=== PATIENT | male | born 1945 | race Caucasian/White ===

== ENCOUNTER 2017-09-23 10:40 | Emergency (ER) | payer OTHER, BC ==
[2017-09-23 10:48] VITALS: BP 127/84; PULSE 110; TEMP 100.3; BMI 30.4
--- NOTE | 2017-09-23 11:37 | PDOC ---
History of Present Illness - General Chief Complaint: Cold Symptoms Stated Complaint: COLD SYMPTOMS Time Seen by Provider: 09/23/17 11:18 History Source: Patient Exam Limitations: No Limitations - History of Present Illness Initial Comments: 09/23/17 11:35 Patient is a 71-year-old male denies any significant medical history did have a history of hypertension and currently off medications because his blood pressure has been under control. Patient presents with fever onset last evening chills generalized aches and pains and cough. Eyes are watery. Works at [employer] exposed to influenza. Did have influenza vaccine. Past Medical History: [Denies]. Allergies: No known allergies Medications: [None] Family History: Non-contributory Social History: Denies smoking, alcohol use, or IVDU Vital signs on arrival are [notable for pulse of 96.] Review of Systems GENERAL/CONSTITUTIONAL: [Fever, chills, generalized aches and pain No weakness. No weight change.] HEAD, EYES, EARS, NOSE AND THROAT: [No change in vision. No ear pain or discharge. No sore throat. ] CARDIOVASCULAR: [No chest pain or shortness of breath.] RESPIRATORY: [Nonproductive cough, wheezing, or hemoptysis.] GASTROINTESTINAL: [No nausea, vomiting, diarrhea or constipation. No rectal bleeding.] GENITOURINARY: [No dysuria, frequency, or change in urination.] MUSCULOSKELETAL: [No joint or muscle swelling or pain. No neck or back pain.] SKIN AND BREASTS: [No rash or easy bruising.] NEUROLOGIC: [No headache, vertigo, loss of consciousness, or loss of sensation.] PSYCHIATRIC: [No depression or anxiety.] ENDOCRINE: [No increased thirst. No abnormal weight change.] HEMATOLOGIC/LYMPHATIC: [No anemia, easy bleeding, or history of blood clots.] ALLERGIC/IMMUNOLOGIC: [No hives or skin allergy. No latex allergy.] Physical Exam: GENERAL: [The patient is awake, alert, and fully oriented, in no acute distress. ] HEAD: [Normal with no signs of trauma.] EYES: [Pupils equal, round and reactive to light, extraocular movements intact, sclera anicteric, conjunctiva clear.] ENT: [Ears normal, nares patent, oropharynx clear without exudates. Moist mucous membranes. No uvula deviation] NECK: [Normal range of motion, supple without lymphadenopathy, JVD, or masses.] LUNGS: [Breath sounds equal, clear to auscultation bilaterally. No wheezes, and no crackles.] HEART: [Regular rate and rhythm, normal S1 and S2 without murmur, rub or gallop. ] ABDOMEN: [Soft, nontender, normoactive bowel sounds. No guarding, no rebound. No masses. No bruising or abrasions] MUSCULOSKELETAL: [Normal range of motion, no edema. No clubbing or cyanosis. No cords, erythema, or tenderness. No CVA Tenderness with fist.] NEUROLOGICAL: [Cranial nerves II through XII grossly intact. Normal speech, normal gait.] SKIN: [Warm, Dry, normal turgor, no rashes or lesions noted.] Past History - Past Medical History Allergies/Adverse Reactions: Allergies Allergy/AdvReac Type Severity Reaction Status Date / Time shrimp Allergy Swelling Verified 09/23/17 10:49 Home Medications: Ambulatory Orders Oseltamivir Phosphate [Tamiflu -] 75 mg PO BID #10 capsule 09/23/17 COPD: No Other medical history: ENLARGED PROSTATE - Suicide/Smoking/Psychosocial Hx Smoking History: Never smoked Hx Alcohol Use: Yes (SOCIAL) Drug/Substance Use Hx: No Substance Use Type: None *Physical Exam - Vital Signs Last Vital Signs Temp Pulse Resp BP Pulse Ox 100.3 F H 110 H 20 127/84 96 09/23/17 10:45 09/23/17 10:45 09/23/17 10:45 09/23/17 10:45 09/23/17 10:45 Medical Decision Making - Medical Decision Making 09/23/17 11:37 A/P: Patient here for influenza-type illness, fever general malaise. Rapid influenza sent 09/23/17 12:10 Patient is influenza A positive will discharge patient in tamiflu. Follow-up with occupational medicine to be released to return to work. *DC/Admit/Observation/Transfer Diagnosis at time of Disposition: Influenza A - Discharge Dispostion Disposition: HOME Condition at time of disposition: Good Admit: No - Prescriptions Prescriptions: Oseltamivir Phosphate [Tamiflu -] 75 mg PO BID #10 capsule - Referrals Referrals: Jack Sánchez MD [Primary Care Provider] - - Patient Instructions Printed Discharge Instructions: Influenza, Influenza (Alternative Therapy) Additional Instructions: Increase fluids to prevent dehydration Tylenol for headache Motrin for fever greater than 101.0 Please followup with primary care DrSylvia in 3 days if symptoms persist Return to emergency department any increased cough, fever, inability to drink or other concerns Tamiflu as prescribed must be cleared by occupational medicine to return to work. Approximately one week. - Post Discharge Activity
== END 2017-09-23 12:21 | disposition home or self-care (01) ==
LOC: JERFT 10:40 → JER 10:40 → JERFT 12:21
DX: J09.X2 Influenza due to identified novel influenza A virus with other respiratory manifestations (principal); I10 Essential (primary) hypertension
CPT/HCPCS: 87804; 99281-25

== ENCOUNTER 2020-03-07 19:06 | Observation (INO) | payer OTHER, BC, MEDICARE ==
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
[2020-03-07 19:16] VITALS: BMI 31.2
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
[2020-03-07 20:09] LABS: BASO % 0.6 % (0-2.0); EOS % 0.7 % (0-4.5); HEMATOCRIT 45.1 % (35.4-49); LYMPH % 15.3 % (8-40); MCH 29.7 pg (25.7-33.7); MCHC 33.2 g/dl (32.0-35.9); MEAN CELL VOLUME 89.5 fl (80-96); MEAN PLT VOLUME 8.6 fl (7.5-11.1); MONO % 5.7 % (3.8-10.2); NEUT % 77.7 % (42.8-82.8); PLATELET COUNT 185 K/MM3 (134-434); RBC 5.04 M/mm3 (4.00-5.60); RDW 14.4 % (11.9-15.9); WHITE BLOOD COUNT 6.5 K/mm3 (4.0-10.0)
[2020-03-07 20:16] LABS: INR 1.07 (0.83-1.09); PROTHROMBIN TIME (PATIENT) 12.6 SEC (9.7-13.0)
--- NOTE | 2020-03-07 20:17 | PDOC ---
Documentation entered by Myrna Tinajero SCRIBE, acting as scribe for Wisam Gomez MD. Wisam Gomez MD: This documentation has been prepared by the michelaibe, Myrna Tinajero SCRIBE, under my direction and personally reviewed by me in its entirety. I confirm that the documentation accurately reflects all work, treatment, procedures, and medical decision making performed by me. Attending Attestation - Resident Resident Name: RojeliojabariItalia - ED Attending Attestation I have performed the following: I have examined & evaluated the patient, The case was reviewed & discussed with the resident, I agree w/resident's findings & plan, Exceptions are as noted - HPI HPI: 03/07/20 20:00 The patient is a 74-year-old male with a past medical history significant for HTN, Alzheimers, gout, and daily baby ASA use who presents to the emergency department s/p a witnessed fall today. The fall was witnessed by his , who reports the patient was drinking heavily today, and the patient tripped and fell forwards, hitting his head on the AC unit then fell backward, hitting the back of his head. The states the patient was unconscious for about 10 minutes. No seizure activity noted. Currently, at the ED, the patient denies a headache. Denies CP/SOB/palpitations/lightheadedness. Allergies: shrimp Social history: No reported use of tobacco, alcohol or recreational drugs. - Physicial Exam PE: 03/07/20 20:04 See resident exam - Medical Decision Making 03/07/20 20:18 74 M with fall, ?syncope. - CT head/cspine - Labs - EKG Discharge - Discharge Information Problems reviewed: Yes Clinical Impression/Diagnosis: Syncope and collapse Fall Qualifiers: Encounter type: initial encounter Qualified Code(s): W19.XXXA - Unspecified fall, initial encounter Head injury Qualifiers: Encounter type: initial encounter Qualified Code(s): S09.90XA - Unspecified injury of head, initial encounter Condition: Stable Disposition: HOME - Follow up/Referral - Patient Discharge Instructions - Post Discharge Activity
[2020-03-07] MEDS ORDERED: SODIUM CHLORIDE 0.9% 500 ML INFUS.BAG IV ONE (20:21)
[2020-03-07 20:36] LABS: MAGNESIUM 2.5 mg/dL (1.8-2.4)
[2020-03-07 20:42] LABS: BILIRUBIN,TOTAL 0.4 mg/dL (0.2-1); BLOOD UREA NITROGEN 20.2 mg/dL (7-18); CALCIUM 8.7 mg/dL (8.5-10.1); POTASSIUM 4.2 mmol/L (3.5-5.1); TOT PROT 7.4 g/dl (6.4-8.2)
[2020-03-07] MEDS ORDERED: PIPERACILLIN/TAZOB 3.375 GM 3.375 GM in DEXTROSE 5%-WATER - 50 ML IVPB ONE (22:46)
[2020-03-07] MEDS ORDERED: TAMSULOSIN HCL 0.4 MG CAP PO ONE (22:48)
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
[2020-03-07 23:36] LABS: URINE APPEARANCE Clear; URINE BILIRUBIN Negative (NEGATIVE); URINE COLOR Yellow; URINE GLUCOSE (UA) Negative (NEGATIVE); URINE KETONE Negative (NEGATIVE); URINE LEUK ESTERASE Negative (NEGATIVE); URINE NITRITE Negative (NEGATIVE); URINE PROTEIN Negative (NEGATIVE); URINE UROBILINOGEN 0.2 mg/dL (0.2-1.0)
[2020-03-08] MEDS ORDERED: TAMSULOSIN HCL 0.4 MG CAP ONE (00:02)
[2020-03-08] MEDS ORDERED: PIPERACILLIN/TAZOB 3.375 GM 3.375 GM/50 ML BAG IVPB ONE (00:08)
[2020-03-08 05:59] LABS: COCAINE, UR NEGATIVE ng/ml (CUTOFF=300); METHADONE, UR NEGATIVE ng/ml (CUTOFF=300); OPIATES, URI NEGATIVE ng/ml (CUTOFF=300); PHENCYCLIDINE,URINE NEGATIVE ng/ml (CUTOFF=25); URINE AMPHETAMINES NEGATIVE ng/ml (CUTOFF=500); URINE BARBITURATES NEGATIVE ng/ml (CUTOFF=200); URINE BENZODIAZEPINES NEGATIVE ng/ml (CUTOFF=200)
[2020-03-08 06:30] LABS: BASO % 0.7 % (0-2.0); EOS % 2.5 % (0-4.5); HEMATOCRIT 42.7 % (35.4-49); HEMOGLOBIN 14.2 GM/dL (11.7-16.9); LYMPH % 26.4 % (8-40); MCHC 33.3 g/dl (32.0-35.9); MEAN PLT VOLUME 8.9 fl (7.5-11.1); MONO % 9.9 % (3.8-10.2); NEUT % 60.5 % (42.8-82.8); PLATELET COUNT 170 K/MM3 (134-434); RBC 4.75 M/mm3 (4.00-5.60); RDW 14.3 % (11.9-15.9); WHITE BLOOD COUNT 5.4 K/mm3 (4.0-10.0)
[2020-03-08 06:56] LABS: ALBUMIN 3.6 g/dl (3.4-5.0); BILIRUBIN,TOTAL 0.5 mg/dL (0.2-1); BLOOD UREA NITROGEN 14.4 mg/dL (7-18); CALCIUM 8.8 mg/dL (8.5-10.1); CREATININE 0.8 mg/dL (0.55-1.3); POTASSIUM 3.9 mmol/L (3.5-5.1); TOT PROT 6.8 g/dl (6.4-8.2)
--- NOTE | 2020-03-08 09:17 | EKG ---
Test Reason : Blood Pressure : / mmHG Vent. Rate : 070 BPM Atrial Rate : 070 BPM P-R Int : 200 ms QRS Dur : 110 ms QT Int : 408 ms P-R-T Axes : 028 -52 034 degrees QTc Int : 440 ms NORMAL SINUS RHYTHM WITH SINUS ARRHYTHMIA LEFT ANTERIOR FASCICULAR BLOCK MODERATE VOLTAGE CRITERIA FOR LVH, MAY BE NORMAL VARIANT ABNORMAL ECG WHEN COMPARED WITH ECG OF 25-JUN-2000 10:52, LEFT ANTERIOR FASCICULAR BLOCK IS NOW PRESENT QT HAS LENGTHENED Confirmed by CARMELO URIBE MD ([id number]) on 03/08/2020 9:16:56 AM Referred By: Confirmed By:CARMELO URIBE MD
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
[2020-03-08] MEDS ORDERED: PANTOPRAZOLE 40 MG TABLET ONE (09:59)
[2020-03-08] MEDS: MEMANTINE HCL 10 MG TABLET (FP) PO SCH ×2 (10:05→23:31)
[2020-03-08] MEDS: PANTOPRAZOLE 40 MG TABLET PO SCH (10:05)
[2020-03-08] MEDS: DONEPEZIL HCL 10 MG TABLET (FP) PO SCH (10:06)
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
--- NOTE | 2020-03-08 17:14 | PN ---
Progress Note, Physician History of Present Illness: Pt seen/ examined in Er Chart reviewed comfortable. no complains wants to go home denies cp/sob/abd pain all consults noted pt says dont drink heavy - Current Medication List Current Medications: Active Medications Donepezil HCl (Aricept -) 10 mg PO DAILY [facility] Last Admin: 03/08/20 10:06 Dose: 10 mg Documented by: Folic Acid 1 mg/ Thiamine HCl 100 mg/ Multivitamins/Minerals 10 ml/ Sodium Chloride 1,000 mls @ 125 mls/hr IVPB ONCE ONE Stop: 03/09/20 01:11 Memantine (Namenda -) 10 mg PO BID [facility] Last Admin: 03/08/20 10:05 Dose: 10 mg Documented by: Pantoprazole Sodium (Protonix -) 40 mg PO DAILY [facility] Last Admin: 03/08/20 10:05 Dose: 40 mg Documented by: - Objective Vital Signs: Vital Signs Temperature 98.0 F 03/08/20 06:27 Pulse Rate 70 03/08/20 06:27 Respiratory Rate 16 03/08/20 06:27 Blood Pressure 141/85 03/08/20 06:27 O2 Sat by Pulse Oximetry (%) 96 03/08/20 06:27 Constitutional: Yes: No Distress, Calm Eyes: Yes: Conjunctiva Clear Neck: Yes: Supple Cardiovascular: Yes: Regular Rate and Rhythm Respiratory: Yes: CTA Bilaterally Gastrointestinal: Yes: Soft Edema: No Neurological: Yes: Alert (No shaking) Labs: CBC, BMP 03/08/20 05:48 03/08/20 05:48 INR, PTT INR 1.07 (0.83-1.09) 03/07/20 19:50 - ....Imaging Chest X-ray: Report Reviewed Cat Scan: Report Reviewed Problem List - Problems (1) Alcoholism /alcohol abuse Code(s): F10.20 - ALCOHOL DEPENDENCE, UNCOMPLICATED (2) Dementia Code(s): F03.90 - UNSPECIFIED DEMENTIA WITHOUT BEHAVIORAL DISTURBANCE (3) Fall Code(s): W19.XXXA - UNSPECIFIED FALL, INITIAL ENCOUNTER Qualifiers: Encounter type: initial encounter Qualified Code(s): W19.XXXA - Unspecified fall, initial encounter (4) Head injury Code(s): S09.90XA - UNSPECIFIED INJURY OF HEAD, INITIAL ENCOUNTER Qualifiers: Encounter type: initial encounter Qualified Code(s): S09.90XA - Unspecified injury of head, initial encounter (5) Syncope and collapse Problems reviewed: Yes Code(s): R55 - SYNCOPE AND COLLAPSE (6) Atelectasis Problems reviewed: Yes Code(s): J98.11 - ATELECTASIS Assessment/Plan Stable Alcohol cessation counselling Banana bag Monitor on tele MRI Brain will follow
[2020-03-08] MEDS ORDERED: FOLIC ACID INJECTION - 1 MG, THIAMINE HCL 100 MG, MULTIVIT INJECTION ADULT 10 ML in SOD... IVPB ONE (17:30)
--- NOTE | 2020-03-09 06:39 | PN ---
Progress Note (short form) - Note Progress Note: Chief Complaint: Events noted, notes reviewed, resting in bed, denies any chest discomfort or dyspnea, no reported dizziness or lightheadedness History of Present Illness: Seen and examined on telemetry. Events noted, notes reviewed, resting in bed, denies any chest discomfort or dyspnea, no reported dizziness or lightheadedness Medications: Current Medications Generic Name Dose Route Start Last Admin Trade Name Mele PRN Reason Stop Dose Admin Aspirin 81 mg 03/09/20 10:00 Asa - PO DAILY JABARI Donepezil HCl 10 mg 03/08/20 10:00 03/08/20 10:06 Aricept - PO 10 mg DAILY JABARI Administration HCTZ/Losartan Potassium 2 tab 03/09/20 10:00 Hyzaar - PO DAILY JABARI Memantine 10 mg 03/08/20 10:00 03/08/20 23:31 Namenda - PO 10 mg BID JABARI Administration Pantoprazole Sodium 40 mg 03/08/20 10:00 03/08/20 10:05 Protonix - PO 40 mg DAILY JABARI Administration Tamsulosin HCl 0.4 mg 03/09/20 08:30 Flomax - PO 0830 JABARI Review of Systems - Review of Systems Constitutional: denies: Fever or Chills Cardiovascular: As noted above Respiratory: denies: Cough or Sputum Production Gastrointestinal: denies: Nausea, Vomiting, Diarrhea, Constipation, Abdominal Pain Neurological: denies: Headaches Vital Signs: Last Vital Signs Temp Pulse Resp BP Pulse Ox 98.5 F 59 L 16 159/100 94 L 03/09/20 05:45 03/09/20 05:45 03/09/20 05:45 03/09/20 05:45 03/08/20 22:49 Intake & Output 03/06/20 03/07/20 03/08/20 03/09/20 23:59 23:59 23:59 23:59 Intake Total 150 150 Balance 150 150 Weight 218 lb 218 lb Neck: Supple Negative JVD No Bruit Respiratory: Clear to auscultation and percussion Cardiovascular: S1 S2 Regular Rate and Rhythm Gastrointestinal: Soft Benign Normal Bowel Sounds Ext: Negative Edema Labs: CBC, BMP 03/08/20 05:48 03/08/20 05:48 Hepatic Panel Total Bilirubin 0.5 mg/dL (0.2-1) 03/08/20 05:48 AST 18 U/L (15-37) 03/08/20 05:48 ALT 30 U/L (13-61) 03/08/20 05:48 Alkaline Phosphatase 99 U/L (45-117) 03/08/20 05:48 Albumin 3.6 g/dl (3.4-5.0) 03/08/20 05:48 INR, PTT INR 1.07 (0.83-1.09) 03/07/20 19:50 Assessment/Plan ASSESSMENT: 1. Syncope/syncopal episode versus a mechanical fall in context of alcohol intoxication 2. Hypertensive cardiovascular disease 3. Organic brain syndrome/Alzheimer's dementia 4. Hypernatremia 5. History of gout PLAN: 1. Continue Hyzaar therapy with caution 2. Continue daily Ecotrin therapy 3. Echocardiography study, pending for evaluation of left ventricular systolic function and valvular function 4. Correction of hypernatremia Nette Simon M.D.
[2020-03-09] MEDS: TAMSULOSIN HCL 0.4 MG CAP PO SCH (08:55)
[2020-03-09] MEDS: DONEPEZIL HCL 10 MG TABLET (FP) PO SCH (09:04)
[2020-03-09] MEDS: LOSARTAN 50MG/HCTZ 12.5MG 1 TAB (FP) PO SCH (09:04)
[2020-03-09] MEDS: PANTOPRAZOLE 40 MG TABLET PO SCH (09:05)
[2020-03-09] MEDS: MEMANTINE HCL 10 MG TABLET (FP) PO SCH ×2 (09:05→21:02)
[2020-03-09] MEDS: ASPIRIN 81 MG CHEWABLE TABLETS PO SCH (09:05)
--- NOTE | 2020-03-09 10:35 | ECHO ---
Name: SHIVANI CLAY Exam:Adult Echocardiogram Study Date: 03/09/2020 09:07 AM Age: 74 yrs Reason For Study: SYNCOPE Height: 70 in Weight: 218 lb BSA: 2.2 m2 MMode/2D Measurements & Calculations IVSd: 1.2 cm Ao root diam: 3.9 cm LVIDd: 3.3 cm LA dimension: 4.2 cm LVIDs: 2.2 cm LVPWd: 1.1 cm EDV(Teich): 45.4 ml LVOT diam: 2.2 cm ESV(Teich): 15.6 ml LAV (MOD-bp): 35.5 ml Doppler Measurements & Calculations MV E max abdi: 55.3 cm/sec Ao V2 max: 169.7 cm/sec MV A max abdi: 75.2 cm/sec Ao max P.5 mmHg MV E/A: 0.74 MV dec time: 0.23 sec CARMEN(V,D): 2.7 cm2 LV V1 max P.3 mmHg PA V2 max: 100.4 cm/sec LV V1 max: 115.4 cm/sec PA max P.0 mmHg Med Peak E' Abdi: 5.5 cm/sec Med E/e': 10.0 Lat Peak E' Abdi: 8.2 cm/sec Lat E/e': 6.8 Procedure A complete two-dimensional transthoracic echocardiogram was performed (2D, M-mode, Doppler and color flow Doppler). The patient was in normal sinus rhythm during the exam. Left Ventricle The left ventricular size, thickness and function are normal. Ejection Fraction = 60%. E/A reversal c onsistent with but not diagnostic of poor LV compliance. The left ventricular wall motion is normal. Right Ventricle The right ventricle is normal in size and function. Atria The left atrium is mildly dilated. Right atrial size is normal. Mitral Valve There is mild mitral valve thickening. There is no mitral regurgitation noted. Tricuspid Valve The tricuspid valve is not well visualized, but is grossly normal. There was insufficient TR detected to calculate RV systolic pressure. Aortic Valve There is mild aortic valve thickening. Pulmonic Valve The pulmonic valve is not well visualized. Great Vessels The aortic root is normal size. Pericardium/Pleura There is no pericardial effusion. There is no pleural effusion. Interpretation Summary This was essentially a normal study. The left ventricular size, thickness and function are normal MD Jamie Hoffman 03/09/2020 10:35 AM
--- NOTE | 2020-03-09 13:38 | PN ---
Progress Note (short form) - Note Progress Note: no dizziness no chest pain no palpitations Vital Signs - 24 hr 03/08/20 03/08/20 03/08/20 19:15 20:15 22:49 Temperature 98.1 F Pulse Rate 71 Pulse Rate [ 90 Right] Respiratory 18 16 Rate Blood Pressure 153/93 Blood Pressure 134/77 [Left Arm] O2 Sat by Pulse 97 98 94 L Oximetry (%) 03/09/20 03/09/20 03/09/20 02:29 05:45 09:00 Temperature 97.9 F 98.5 F Pulse Rate 58 L 59 L Pulse Rate [ Right] Respiratory 19 16 Rate Blood Pressure 146/91 159/100 Blood Pressure [Left Arm] O2 Sat by Pulse 95 Oximetry (%) 03/09/20 03/09/20 09:21 13:39 Temperature 99.0 F 98.5 F Pulse Rate 74 79 Pulse Rate [ Right] Respiratory 18 18 Rate Blood Pressure 162/105 H 152/94 Blood Pressure [Left Arm] O2 Sat by Pulse Oximetry (%) Current Medications Generic Name Dose Route Start Last Admin Trade Name Freq PRN Reason Stop Dose Admin Aspirin 81 mg 03/09/20 10:00 03/09/20 09:05 Asa - PO 81 mg DAILY JABARI Administration Diazepam 5 mg 03/09/20 13:37 Valium - PO 03/09/20 13:38 ONCE ONE Donepezil HCl 10 mg 03/08/20 10:00 03/09/20 09:04 Aricept - PO 10 mg DAILY JABARI Administration HCTZ/Losartan Potassium 2 tab 03/09/20 10:00 03/09/20 09:04 Hyzaar - PO 2 tab DAILY JABARI Administration Potassium Chloride 10 meq/ 1,005 mls @ 100 mls/hr 03/09/20 14:45 03/09/20 15:57 Sodium Chloride IVPB 100 mls/hr Q10H JABARI Administration Memantine 10 mg 03/08/20 10:00 03/09/20 09:05 Namenda - PO 10 mg BID JABARI Administration Pantoprazole Sodium 40 mg 03/08/20 10:00 03/09/20 09:05 Protonix - PO 40 mg DAILY JABARI Administration Tamsulosin HCl 0.4 mg 03/09/20 08:30 03/09/20 08:55 Flomax - PO 0.4 mg 0830 JABARI Administration Laboratory Last Values WBC 5.4 K/mm3 (4.0-10.0) 03/08/20 05:48 RBC 4.75 M/mm3 (4.00-5.60) 03/08/20 05:48 Hgb 14.2 GM/dL (11.7-16.9) 03/08/20 05:48 Hct 42.7 % (35.4-49) 03/08/20 05:48 MCV 90.0 fl (80-96) 03/08/20 05:48 MCH 30.0 pg (25.7-33.7) 03/08/20 05:48 MCHC 33.3 g/dl (32.0-35.9) 03/08/20 05:48 RDW 14.3 % (11.9-15.9) 03/08/20 05:48 Plt Count 170 K/MM3 (134-434) 03/08/20 05:48 MPV 8.9 fl (7.5-11.1) 03/08/20 05:48 Absolute Neuts (auto) 3.3 K/mm3 (1.5-8.0) 03/08/20 05:48 Neutrophils % 60.5 % (42.8-82.8) D 03/08/20 05:48 Lymphocytes % 26.4 % (8-40) D 03/08/20 05:48 Monocytes % 9.9 % (3.8-10.2) 03/08/20 05:48 Eosinophils % 2.5 % (0-4.5) D 03/08/20 05:48 Basophils % 0.7 % (0-2.0) 03/08/20 05:48 Nucleated RBC % 0 % (0-0) 03/08/20 05:48 PT with INR 12.60 SEC (9.7-13.0) 03/07/20 19:50 INR 1.07 (0.83-1.09) 03/07/20 19:50 PTT (Actin FS) 29.0 SECONDS (25.2-36.5) 03/07/20 19:50 Sodium 146 mmol/L (136-145) H 03/08/20 05:48 Potassium 3.9 mmol/L (3.5-5.1) 03/08/20 05:48 Chloride 113 mmol/L (98-107) H 03/08/20 05:48 Carbon Dioxide 24 mmol/L (21-32) 03/08/20 05:48 Anion Gap 10 MMOL/L (8-16) 03/08/20 05:48 BUN 14.4 mg/dL (7-18) 03/08/20 05:48 Creatinine 0.8 mg/dL (0.55-1.3) 03/08/20 05:48 Est GFR (CKD-EPI)AfAm 100.57 03/08/20 05:48 Est GFR (CKD-EPI)NonAf 86.77 03/08/20 05:48 Random Glucose 76 mg/dL (74-106) 03/08/20 05:48 Calcium 8.8 mg/dL (8.5-10.1) 03/08/20 05:48 Phosphorus 3.0 mg/dL (2.5-4.9) 03/07/20 19:50 Magnesium 2.5 mg/dL (1.8-2.4) H 03/07/20 19:50 Total Bilirubin 0.5 mg/dL (0.2-1) 03/08/20 05:48 AST 18 U/L (15-37) 03/08/20 05:48 ALT 30 U/L (13-61) 03/08/20 05:48 Alkaline Phosphatase 99 U/L (45-117) 03/08/20 05:48 Creatine Kinase 122 U/L (26-308) 03/07/20 19:50 Troponin I < 0.02 ng/ml (0.00-0.05) 03/07/20 19:50 Total Protein 6.8 g/dl (6.4-8.2) 03/08/20 05:48 Albumin 3.6 g/dl (3.4-5.0) 03/08/20 05:48 Vitamin B12 280 pg/ml (193-986) 03/08/20 05:48 TSH 0.66 uIU/ml (0.358-3.74) 03/08/20 05:48 Urine Color Yellow 03/07/20 22:00 Urine Appearance Clear 03/07/20 22:00 Urine pH 5.0 (5.0-8.0) 03/07/20 22:00 Ur Specific [place] 1.020 (1.010-1.035) 03/07/20 22:00 Urine Protein Negative (NEGATIVE) 03/07/20 22:00 Urine Glucose (UA) Negative (NEGATIVE) 03/07/20 22:00 Urine Ketones Negative (NEGATIVE) 03/07/20 22:00 Urine Blood Negative (NEGATIVE) 03/07/20 22:00 Urine Nitrite Negative (NEGATIVE) 03/07/20 22:00 Urine Bilirubin Negative (NEGATIVE) 03/07/20 22:00 Urine Urobilinogen 0.2 mg/dL (0.2-1.0) 03/07/20 22:00 Ur Leukocyte Esterase Negative (NEGATIVE) 03/07/20 22:00 U Pathogenic Cast Auto None /lpf (NEGATIVE) 03/07/20 22:00 Opiates Screen Negative ng/ml (ZHMXRS=455) 03/08/20 05:15 Methadone Screen Negative ng/ml (IPFKCF=270) 03/08/20 05:15 Barbiturate Screen Negative ng/ml (QNEJDH=235) 03/08/20 05:15 Phencyclidine Screen Negative ng/ml (CUTOFF=25) 03/08/20 05:15 Ur Amphetamines Screen Negative ng/ml (KMAWXY=000) 03/08/20 05:15 MDMA (Ecstasy) Screen Negative ng/ml (BGGDYB=029) 03/08/20 05:15 Benzodiazepines Screen Negative ng/ml (AKQJXU=803) 03/08/20 05:15 Cocaine Screen Negative ng/ml (ILWAIY=887) 03/08/20 05:15 U Marijuana (THC) Screen Negative ng/ml (CUTOFF=50) 03/08/20 05:15 Alcohol, Quantitative 255.7 mg/dL (0.0-5.0) H 03/07/20 19:50 Syphilis Serology Non-reactive (NONREACTIVE) 03/08/20 09:00 Blood Type B POSITIVE 03/07/20 19:50 Antibody Screen Negative 03/07/20 19:50 S1 S2 RRR Lungs clear Abd- soft, NT No edema strength is normal A/P Syncope HTN s/p fall head injury -- pt admits to binge drinking over the weekends -- Librium as needed -- will do MRI brain- no contrast, give valium prior to the MRI -- Neurology abd Cardiology eval noted -- monitor BP-- may need to adjust his meds Problem List - Problems (1) Alcoholism /alcohol abuse Code(s): F10.20 - ALCOHOL DEPENDENCE, UNCOMPLICATED (2) Atelectasis Code(s): J98.11 - ATELECTASIS (3) Fall Code(s): W19.XXXA - UNSPECIFIED FALL, INITIAL ENCOUNTER Qualifiers: Encounter type: initial encounter Qualified Code(s): W19.XXXA - Unspecified fall, initial encounter (4) Head injury Code(s): S09.90XA - UNSPECIFIED INJURY OF HEAD, INITIAL ENCOUNTER Qualifiers: Encounter type: initial encounter Qualified Code(s): S09.90XA - Unspecified injury of head, initial encounter (5) Syncope and collapse Code(s): R55 - SYNCOPE AND COLLAPSE
[2020-03-09] MEDS: POTASSIUM CHLORIDE 10 MEQ in SODIUM CHLORIDE 0.45% 1,000 ML IVPB SCH (15:57)
[2020-03-09] MEDS ORDERED: chlordiazePOXIDE HCL 25 MG CAPSULE PO PRN (17:18)
[2020-03-09] MEDS ORDERED: diazePAM 5 MG TABLET PO ONE (18:15)
[2020-03-10] MEDS: POTASSIUM CHLORIDE 10 MEQ in SODIUM CHLORIDE 0.45% 1,000 ML IVPB SCH ×3 (02:04→14:20)
[2020-03-10] MEDS: TAMSULOSIN HCL 0.4 MG CAP PO SCH (08:49)
[2020-03-10] MEDS: PANTOPRAZOLE 40 MG TABLET PO SCH (09:49)
[2020-03-10] MEDS: DONEPEZIL HCL 10 MG TABLET (FP) PO SCH (09:49)
[2020-03-10] MEDS: LOSARTAN 50MG/HCTZ 12.5MG 1 TAB (FP) PO SCH (09:49)
[2020-03-10] MEDS: ASPIRIN 81 MG CHEWABLE TABLETS PO SCH (09:50)
[2020-03-10] MEDS: MEMANTINE HCL 10 MG TABLET (FP) PO SCH (09:50)
--- NOTE | 2020-03-10 10:16 | PN ---
Progress Note, Physician History of Present Illness: Denies recurrent near or true syncope, chest pain or dyspnea. PCP - Jack Sánchez - Current Medication List Current Medications: Active Medications Aspirin (Asa -) 81 mg PO DAILY [facility] Last Admin: 03/10/20 09:50 Dose: 81 mg Documented by: Chlordiazepoxide HCl (Librium -) 25 mg PO Q6H PRN PRN Reason: WITHDRAWAL(CONT SUBST) Donepezil HCl (Aricept -) 10 mg PO DAILY [facility] Last Admin: 03/10/20 09:49 Dose: 10 mg Documented by: HCTZ/Losartan Potassium (Hyzaar -) 2 tab PO DAILY [facility] Last Admin: 03/10/20 09:49 Dose: 2 tab Documented by: Potassium Chloride 10 meq/ (Sodium Chloride) 1,005 mls @ 100 mls/hr IVPB Q10H [facility] Last Admin: 03/10/20 02:47 Dose: 100 mls/hr Documented by: Memantine (Namenda -) 10 mg PO BID [facility] Last Admin: 03/10/20 09:50 Dose: 10 mg Documented by: Pantoprazole Sodium (Protonix -) 40 mg PO DAILY [facility] Last Admin: 03/10/20 09:49 Dose: 40 mg Documented by: Tamsulosin HCl (Flomax -) 0.4 mg PO 0830 [facility] Last Admin: 03/10/20 08:49 Dose: 0.4 mg Documented by: - Objective Vital Signs: Vital Signs Temperature 97.5 F L 03/10/20 09:25 Pulse Rate 73 03/10/20 09:25 Respiratory Rate 19 03/10/20 09:25 Blood Pressure 153/107 H 03/10/20 09:25 O2 Sat by Pulse Oximetry (%) 96 03/09/20 21:00 Constitutional: Yes: No Distress, Calm Neck: Yes: Supple Cardiovascular: Yes: Regular Rate and Rhythm Respiratory: Yes: Regular, CTA Bilaterally Gastrointestinal: Yes: Normal Bowel Sounds, Soft Edema: No Labs: CBC, BMP 03/08/20 05:48 03/08/20 05:48 INR, PTT INR 1.07 (0.83-1.09) 03/07/20 19:50 - ....Imaging Chest X-ray: Report Reviewed (NAD) EKG: Report Reviewed (Tele: NSR) Problem List - Problems (1) Alcoholism /alcohol abuse Code(s): F10.20 - ALCOHOL DEPENDENCE, UNCOMPLICATED (2) Fall Code(s): W19.XXXA - UNSPECIFIED FALL, INITIAL ENCOUNTER Qualifiers: Encounter type: initial encounter Qualified Code(s): W19.XXXA - Unspecified fall, initial encounter (3) Syncope and collapse Code(s): R55 - SYNCOPE AND COLLAPSE Assessment/Plan 03/09/2020 Echo: Normal biventricular size and fxn w/o sig valve abnl 03/09/2020 Brain MRI: no acute pathology EKG reviewed: NSR w/sinus arrhythmia, 70bpm, DC interval 200ms, IRBBB, QTc 440ms, no TWIs, no ST elevations or depressions, no priors for comparison CXR reviewed: R basilar atelectasis ASSESSMENT: 1. Syncope/syncopal episode versus a mechanical fall in context of alcohol intoxication 2. Hypertensive cardiovascular disease 3. Organic brain syndrome/Alzheimer's dementia 4. Hypernatremia 5. History of gout PLAN: 1. Continue Hyzaar 2 qd with caution 2. Continue daily Ecotrin 81 qd 3. Echocardiography reviewed 4. Correction of hypernatremia 5. Librium taper
--- NOTE | 2020-03-10 14:04 | PN ---
Progress Note, Physician History of Present Illness: vents noted Patient is on telemetry No report of any fainting spells. Patient is slightly confused she is a poor historian. MRI of the brain revealed evidence of mild atrophy with evidence of periventricular ischemic changes with no evidence of acute pathology no bleed no stroke. - Current Medication List Current Medications: Active Medications Aspirin (Asa -) 81 mg PO DAILY [facility] Last Admin: 03/10/20 09:50 Dose: 81 mg Documented by: Chlordiazepoxide HCl (Librium -) 25 mg PO Q6H PRN PRN Reason: WITHDRAWAL(CONT SUBST) Donepezil HCl (Aricept -) 10 mg PO DAILY [facility] Last Admin: 03/10/20 09:49 Dose: 10 mg Documented by: HCTZ/Losartan Potassium (Hyzaar -) 2 tab PO DAILY [facility] Last Admin: 03/10/20 09:49 Dose: 2 tab Documented by: Potassium Chloride 10 meq/ (Sodium Chloride) 1,005 mls @ 100 mls/hr IVPB Q10H [facility] Last Admin: 03/10/20 02:47 Dose: 100 mls/hr Documented by: Memantine (Namenda -) 10 mg PO BID [facility] Last Admin: 03/10/20 09:50 Dose: 10 mg Documented by: Pantoprazole Sodium (Protonix -) 40 mg PO DAILY [facility] Last Admin: 03/10/20 09:49 Dose: 40 mg Documented by: Tamsulosin HCl (Flomax -) 0.4 mg PO 0830 [facility] Last Admin: 03/10/20 08:49 Dose: 0.4 mg Documented by: - Objective Vital Signs: Vital Signs Temperature 97.5 F L 03/10/20 09:25 Pulse Rate 73 03/10/20 09:25 Respiratory Rate 19 03/10/20 09:25 Blood Pressure 153/107 H 03/10/20 09:25 O2 Sat by Pulse Oximetry (%) 96 03/09/20 21:00 Constitutional: Yes: Well Nourished Eyes: Yes: WNL Neurological: Yes: Alert, Oriented, Babinski negative, Cran Nerves II-XII Intact Labs: CBC, BMP 03/08/20 05:48 03/08/20 05:48 INR, PTT INR 1.07 (0.83-1.09) 03/07/20 19:50 Problem List - Problems (1) Fall Code(s): W19.XXXA - UNSPECIFIED FALL, INITIAL ENCOUNTER Qualifiers: Encounter type: initial encounter Qualified Code(s): W19.XXXA - Unspecified fall, initial encounter (2) Head injury Code(s): S09.90XA - UNSPECIFIED INJURY OF HEAD, INITIAL ENCOUNTER Qualifiers: Encounter type: initial encounter Qualified Code(s): S09.90XA - Unspecified injury of head, initial encounter (3) Syncope and collapse Code(s): R55 - SYNCOPE AND COLLAPSE Assessment/Plan 1. Stay away from the Aricept. 2. Check orthostasis every shift. 3. Follow-up with cardiology. 4. Discharge planning
[2020-03-10 14:30] VITALS: BP 133/85; PULSE 97; TEMP 98.3
--- NOTE | 2020-03-10 14:48 | DS ---
Physical Examination Vital Signs: Vital Signs Temperature 98.3 F 03/10/20 14:29 Pulse Rate 97 H 03/10/20 14:29 Respiratory Rate 18 03/10/20 14:29 Blood Pressure 133/85 03/10/20 14:29 O2 Sat by Pulse Oximetry (%) 96 03/09/20 21:00 Labs: CBC, BMP 03/08/20 05:48 03/08/20 05:48 Discharge Summary Problems reviewed: Yes Reason For Visit: SYNCOPE AND COLLAPSE INJURY OF HEAD FALL Current Active Problems Alcoholism /alcohol abuse (Acute) Atelectasis (Acute) Dementia (Acute) Fall (Acute) Head injury (Acute) Syncope and collapse (Acute) Condition: Stable - Instructions Diet, Activity, Other Instructions: ABSOLUTELY NO ALCOHOL DRINKING NO FURTHER DRIVING DO NOT HANDLE FINANCES Referrals: Jack Sánchez MD [Primary Care Provider] - Disposition: HOME - Home Medications Comprehensive Discharge Medication List: Ambulatory Orders Aspirin [ASA -] 81 mg PO DAILY 03/07/20 Losartan/Hctz 100/25 1 tab PO DAILY 03/07/20 Memantine HCl [Namenda Xr] 28 mg PO DAILY 03/07/20 Tamsulosin HCl [Flomax] 0.4 mg PO DAILY 03/07/20
[2020-03-10 16:06] LABS: BLOOD UREA NITROGEN 11.9 mg/dL (7-18); CALCIUM 9.1 mg/dL (8.5-10.1); CREATININE 0.9 mg/dL (0.55-1.3); POTASSIUM 3.8 mmol/L (3.5-5.1)
== END 2020-03-10 17:14 | disposition home or self-care (01) ==
LOC: JER 19:06 → INTOOBSV 20:20 → JERBED 20:20 → J4S 03-08 21:50
PROVIDERS: ATTEND Internal Medicine
PROC: 3E0337Z Introduction of Electrolytic and Water Balance Substance into Peripheral Vein, Percutaneous Approach (ICD-10-PCS; principal; 2020-03-07)
PROC: 3E03329 Introduction of Other Anti-infective into Peripheral Vein, Percutaneous Approach (ICD-10-PCS; 2020-03-07)
PROC: 3E033GC Introduction of Other Therapeutic Substance into Peripheral Vein, Percutaneous Approach (ICD-10-PCS; 2020-03-07)
DX: R55 Syncope and collapse (principal); F10.20 Alcohol dependence, uncomplicated; S09.8XXA Other specified injuries of head, initial encounter; G30.9 Alzheimer's disease, unspecified; F02.80 Dementia in other diseases classified elsewhere, unspecified severity, without behavioral disturbance, psychotic disturbance, mood disturbance, and anxiety; J98.11 Atelectasis; I10 Essential (primary) hypertension; M10.9 Gout, unspecified; Y93.89 Activity, other specified; Y92.009 Unspecified place in unspecified non-institutional (private) residence as the place of occurrence of the external cause; F05 Delirium due to known physiological condition; N40.0 Benign prostatic hyperplasia without lower urinary tract symptoms; Z79.82 Long term (current) use of aspirin; X58.XXXA Exposure to other specified factors, initial encounter; Z91.013 Allergy to seafood
CPT/HCPCS: 36415; 70450-TC; 70551-TC; 71045-TC-FY; 72125-TC; 80048; 80053; 80307; 81003; 82550; 82607; 83735; 84100; 84443; 84484; 85025; 85610; 85730; 86780; 86850; 86900; 86901; 87086; 93005; 93010; 93306-TC; 93880-TC; 96365; 96367; 96375; 99285-25; G0378; U0003